=== PATIENT | female | born 1975 | race Two or more races ===

== ENCOUNTER → 2017-10-21 16:35 | Outpatient (CLI) | payer OTHER | END | disposition home or self-care (01) | LOC: RAD 16:35 | DX: D64.9 Anemia, unspecified (principal); E88.89 Other specified metabolic disorders; D68.8 Other specified coagulation defects; N39.0 Urinary tract infection, site not specified; B95.62 Methicillin resistant Staphylococcus aureus infection as the cause of diseases classified elsewhere; Z76.89 Persons encountering health services in other specified circumstances; S52.531A Colles' fracture of right radius, initial encounter for closed fracture ==

== ENCOUNTER 2017-10-22 11:42 | Outpatient (CLI) | payer OTHER | END 2017-10-22 11:52 | disposition home or self-care (01) | LOC: LAB 11:42 | DX: I49.8 Other specified cardiac arrhythmias (principal) ==

== ENCOUNTER 2017-10-25 05:40 | Day surgery (SDC) | payer OTHER | END 2017-10-25 13:15 | disposition home or self-care (01) | LOC: CIR.AMB 05:40 | DX: S52.591A Other fractures of lower end of right radius, initial encounter for closed fracture (principal) ==

== ENCOUNTER 2018-04-20 15:45 | Outpatient (CLI) | payer OTHER | END 2018-04-20 15:59 | disposition home or self-care (01) | LOC: RAD 501 15:45 | DX: M25.531 Pain in right wrist (principal) ==